=== PATIENT | male | born 1985 | race Caucasian/White ===

== ENCOUNTER → 2016-12-18 | Outpatient (CLI) | payer MEDICARE, OTHER ==
--- NOTE | 2016-12-18 14:39 | US ---
EXAMINATION TYPE: US scrotum with doppler. Grayscale and color Doppler Duplex imaging performed of chayo pang scrotum. DATE OF EXAM: 12/18/2016 COMPARISON: NONE CLINICAL HISTORY: Q53.20 RANCHO UNDESCENDED TESTICLES. Undescended testicles bilaterally EXAM MEASUREMENTS: TESTICLES: Right Testicle: 2.2 x 0.7 x 1.3 cm Left Testicle: 1.9 x 0.9 x 1.3 cm EPIDIDYMIS HEAD: Right Epididymis: 0.7 cm Left Epididymis: 0.8 cm Doppler performed to assess for testicular vascularity; good bilateral color flow and waveforms are s een. There is no evidence of testicular torsion. Presence of hydroceles: no Presence of varicoceles: no cystic area right epididymis = 0.4cm Hyperechoic areas noted right testicle, largest = 0.3 x 0.3 x 0.3cm At least one hyperechoic area left testicle = 1.0cm Unable to image testicles side by side, left testicle appears to be superior in position compared to right Multiple lymph nodes bilateral groin, Patient has underlying history of mental challenge making evaluation suboptimal. A fourth subcentimet er simple appearing cyst in the right epididymis is marked by technologist. A 3 mm round hyperechoic areas marked superiorly in the right testicle. Etiology uncertain but favored benign. Both testicles are diminutive in size for patient's age. No worrisome intratesticular mass is present bilaterally. C entral ill-defined hyperechoic area left testicle could reflect mediastinal fat, favored benign. Tech nologist ulrich several prominent lymph nodes in the bilateral groin that retain central fatty hilum a nd are subcentimeter on short axis. Technologist states patient has very small scrotal sac and testic les are difficult to localize within the scrotum or definitively within the inguinal canal. IMPRESSION: As above, symmetric small diminutive size to both testicles is seen. They are felt most l ikely to be along superior aspect of the small size scrotum. Clinical correlation advised.
== END | disposition home or self-care (01) ==
LOC: RADUSWWP 12:14
PROVIDERS: ATTEND Internal Medicine
DX: N50.89 Other specified disorders of the male genital organs (principal); Q53.20 Undescended testicle, unspecified, bilateral
CPT/HCPCS: 76870; 93975

== ENCOUNTER → 2021-03-07 | Outpatient (CLI) | payer MEDICARE, OTHER | END | disposition home or self-care (01) | LOC: LABWHC1 12:44 | PROVIDERS: ATTEND Urology | DX: Z20.822 Contact with and (suspected) exposure to COVID-19 (principal) | CPT/HCPCS: U0003; C9803 ==

== ENCOUNTER → 2022-03-23 | Outpatient (CLI) | payer MEDICARE, OTHER ==
--- NOTE | 2022-03-23 10:33 | FL ---
EXAMINATION TYPE: FL barium swallow DATE OF EXAM: 03/23/2022 CLINICAL HISTORY: History of cerebral palsy with dysphagia. TECHNIQUE: A single contrast esophagram is performed utilizing barium. A total of 34 seconds of flu oroscopic time was utilized during procedure and 24 images obtained COMPARISON: Chest x-ray May 02, 2016 FINDINGS: Single contrast study performed due to patient's underlying cerebral palsy. The esophagus s hows satisfactory motility and emptying into the stomach above the diaphragm. There is moderate to la rge size hiatal hernia or intrathoracic stomach noted. No proximal diverticulum. No esophageal strict ure noted. No significant gastroesophageal reflux was seen during real time performance of this study . IMPRESSION: Moderate to large size hiatal hernia or intrathoracic stomach noted.
== END | disposition home or self-care (01) ==
LOC: RADUSWWP 09:18
PROVIDERS: ATTEND Internal Medicine
DX: G80.9 Cerebral palsy, unspecified (principal); R13.10 Dysphagia, unspecified
CPT/HCPCS: 74220

== ENCOUNTER 2023-03-01 08:21 | Emergency (ER) | payer MEDICARE, OTHER ==
[2023-03-01] MEDS ORDERED: SODIUM CHLORIDE 0.9% 1,000 ML IV ONE (08:39)
[2023-03-01 08:47] VITALS: RESP 18; TEMP 98
[2023-03-01 09:32] LABS: Basophils # (A) 0.1 k/uL (0-0.2); Basophils % (A) 1 %; Eosinophils # (A) 0.2 k/uL (0-0.7); Eosinophils % (A) 6 %; HCT 39.1 % (39.0-53.0); HGB 12.7 gm/dL (13.0-17.5); Lymphocytes # (A) 0.8 k/uL (1.0-4.8); Lymphocytes % (A) 20 %; MCH 31.5 pg (25.0-35.0); MCHC 32.5 g/dL (31.0-37.0); MCV 96.7 fL (80.0-100.0); Mean Platelet Volume 8.8; Monocytes # (A) 0.2 k/uL (0-1.0); Monocytes % (A) 5 %; Neutrophils # (A) 2.8 k/uL (1.3-7.7); Neutrophils % (A) 66 %; Platelet Count 208 k/uL (150-450); RBC 4.05 m/uL (4.30-5.90); RDW 12.6 % (11.5-15.5); WBC 4.3 k/uL (3.8-10.6)
[2023-03-01 09:44] LABS: ALT 26 U/L (4-49); AST 30 U/L (17-59); African American GFR (CKD) >90 (>60 ml/min/1.73 sqM); Albumin 4.2 g/dL (3.5-5.0); Alkaline Phosphatase 91 U/L (38-126); Anion Gap 9 mmol/L; Blood Urea Nitrogen 17 mg/dL (9-20); Calcium 9.7 mg/dL (8.4-10.2); Carbon Dioxide 25 mmol/L (22-30); Chloride 106 mmol/L (98-107); Glucose 138 mg/dL (74-99); Non-African American GFR(CKD) >90 (>60 ml/min/1.73 sqM); Potassium 4.3 mmol/L (3.5-5.1); Sodium 140 mmol/L (137-145); Total Bilirubin 0.3 mg/dL (0.2-1.3); Total Protein 6.5 g/dL (6.3-8.2)
--- NOTE | 2023-03-01 09:58 | ED ---
General Adult HPI - General Chief complaint: Recheck/Abnormal Lab/Rx Stated complaint: Blood in toilet Time Seen by Provider: 03/01/23 08:38 Source: patient, RN notes reviewed Mode of arrival: ambulatory Limitations: no limitations - History of Present Illness Initial comments: 38-year-old male with past medical history of cerebral palsy presents to the emergency department with a chief complaint of blood in urine. Patient is nonverbal so history is obtained from his caregiver. Caregiver reports she was changing his brace and noticed blood in the toilet. She reports he is unsure if the blood was rectal or penile. She does report the patient has a previous history of kidney stones. Denies any known fevers, nausea, vomiting, abdominal pain. - Related Data Home Medications Medication Instructions Recorded Confirmed Ferrous Sulfate [Feosol] 325 mg PO Q48H 07/31/15 03/01/23 Cholecalciferol [Vitamin D3 (125 125 mcg PO DAILY 03/01/23 03/01/23 Mcg = 5000 Iu)] Erythromycin Base [Erythromycin] 1 applic BOTH EYES HS PRN 03/01/23 03/01/23 Ethosuximide [Zarontin] 250 mg PO BID 03/01/23 03/01/23 FLUoxetine HCL [PROzac] 20 mg PO DAILY 03/01/23 03/01/23 Fenofibrate Nanocrystallized 145 mg PO DAILY 03/01/23 03/01/23 [Fenofibrate] Furosemide [Lasix] 20 mg PO DAILY PRN 03/01/23 03/01/23 Ketoconazole 2% Shampoo [Nizoral] 1 applic TOPICAL DIRECTED 03/01/23 03/01/23 Ketoconazole 2% Shampoo [Nizoral] 1 applic TOPICAL MOTH 03/01/23 03/01/23 Loratadine [Claritin] 10 mg PO DAILY 03/01/23 03/01/23 Omeprazole 20 mg PO AC-BID@0730,1630 03/01/23 03/01/23 Sucralfate [Carafate] 1 gm PO QID 03/01/23 03/01/23 metFORMIN HCL [Glucophage] 500 mg PO BID 03/01/23 03/01/23 risperiDONE [RisperDAL] 1 mg PO DAILY 03/01/23 03/01/23 risperiDONE [RisperDAL] 2 mg PO HS 03/01/23 03/01/23 traZODone HCL [Desyrel] 100 mg PO HS 03/01/23 03/01/23 Allergies Allergy/AdvReac Type Severity Reaction Status Date / Time No Known Allergies Allergy Verified 03/01/23 12:30 Review of Systems ROS Statement: Those systems with pertinent positive or pertinent negative responses have been documented in the HPI. ROS Other: All systems not noted in ROS Statement are negative. Past Medical History Past Medical History: GERD/Reflux, GI Bleed, Musculoskeletal Disorder Additional Past Medical History / Comment(s): CEREBRAL PALSY; WEARS DEPENDS,- INCONTINENT History of Any Multi-Drug Resistant Organisms: None Reported Additional Past Surgical History / Comment(s): COLONOSCOPY, EGD Past Anesthesia/Blood Transfusion Reactions: No Reported Reaction Past Psychological History: ADD/ADHD Smoking Status: Never smoker Past Alcohol Use History: None Reported Past Drug Use History: None Reported - Past Family History Mother Family Medical History: No Reported History General Exam - General Exam Comments Initial Comments: General: Alert, in no acute distress Head: atraumatic normocephalic. Eyes PERRL, EOMI intact, mucous membranes moist Respiratory: Lungs clear to auscultation bilaterally Cardiovascular: Heart rate regular rate and Abdominal: Soft without guarding or rebound Extremities: Normal inspection with full range of motion and normal capillary refill Neuroogic: alert and oriented 3, CN II-XII intact, able to ambulate with steady gait Skin: warm dry and intact with normal color Rectal exam performed with ALFREDO Gonzalez present. No evidence of hemorrhoids. No gross bloody stool in the rectal vault. Limitations: no limitations Course Vital Signs 03/01/23 03/01/23 08:26 13:08 Temperature 98 F Pulse Rate 76 72 Respiratory 18 18 Rate Blood Pressure 126/84 109/65 O2 Sat by Pulse 99 98 Oximetry - Reevaluation(s) Reevaluation #1: 03/01/23 11:01 Patient reevaluated. sorter pricer updated on CT results. Agreeable with the plan for ultrasound. Medical Decision Making - Medical Decision Making Was pt. sent in by a medical professional or institution (, PA, [facility], urgent care, hospital, or snf...) When possible be specific @ -[No] Did you speak to anyone other than the patient for history (EMS, parent, family, police, friend...)? What history was obtained from this source @ -[No] Did you review nursing and triage notes (agree or disagree)? Why? @ -[I reviewed and agree with nursing and triage notes] Were old charts reviewed (outside hosp., previous admission, EMS record, old EKG, old radiological studies, urgent care reports/EKG's, snf records)? Report findings @ -[No old charts were reviewed] Differential Diagnosis (chest pain, altered mental status, abdominal pain women, abdominal pain men, vaginal bleeding, weakness, fever, dyspnea, syncope, headache, dizziness, GI bleed, back pain, seizure, CVA, palpatations, mental health, musculoskeletal)? @ -[not applicable] EKG interpreted by me (3pts min.). @ -[As above] X-rays interpreted by me (1pt min.). @ -[None done] CT interpreted by me (1pt min.). @ -Yes U/S interpreted by me (1pt. min.). @ -Yes What testing was considered but not performed or refused? (CT, X-rays, U/S, labs)? Why? @ -[None] What meds were considered but not given or refused? Why? @ -[None] Did you discuss the management of the patient with other professionals (professionals i.e. , PA, [employer], lab, RT, psych nurse, geriatric social worker, program aide, teacher, zoology technical officer, manager case)? Give summary @ -[No] Was smoking cessation discussed for >3mins.? @ -[No] Was critical care preformed (if so, how long)? @ -[No] Were there social determinants of health that impacted care today? How? (Homelessness, low income, unemployed, alcoholism, drug addiction, transportation, low edu. Level, literacy, decrease access to med. care, halfway, rehab)? @ -[No] Was there de-escalation of care discussed even if they declined (Discuss DNR or withdrawal of care, Hospice)? DNR status @ -[No] What co-morbidities impacted this encounter? (DM, HTN, Smoking, COPD, CAD, Cancer, CVA, ARF, Chemo, Hep., AIDS, mental health diagnosis, sleep apnea, morbid obesity)? @ -[None] Was patient admitted / discharged? Hospital course, mention meds given and route, prescriptions, significant lab abnormalities, going to OR and other pertinent info. @ -Discharge. This is a pleasant 38-year-old male with past medical history significant for cerebral palsy who presents the emergency department with possible blood in urine or stool. Patient had a thorough history and physical exam performed. Patient afebrile with vital signs stable and the emergency department. Heart rate regular rate and rhythm, lungs clear to auscultation abdomen soft non-tender. No CVA tenderness. No gross bloody stool in the rectal vault for evidence of hemorrhoids. Patient had laboratory studies performed which were unremarkable. Including negative urinalysis and negative occult. I interpreted the following: CT reveals a nonobstructive left renal 7 mm calculus. There is a left renal 9 mm hyperdense lesion likely representing hemorrhagic cyst recommend further evaluation with the renal ultrasound. Ultrasound reveals similar findings. I discussed the results in detail with the patient's caregiver reports a sore throat questions addressed. She is agreeable with the plan for discharge home at this time. Return precautions discussed. Recommend close follow-up with Dr. Gómez, urology within 3-5 days. Patient discharged in stable condition. Case discussed with Dr. Larios , [facility] who agrees with plan of care Undiagnosed new problem with uncertain prognosis? @ -[No] Drug Therapy requiring intensive monitoring for toxicity (Heparin, Nitro, Insulin, Cardizem)? @ -[No] Were any procedures done? @ -[No] Diagnosis/symptom? @ -Hematuria - Renal Cyst Acute, or Chronic, or Acute on Chronic? @ -Acute Uncomplicated (without systemic symptoms) or Complicated (systemic symptoms)? @ -Uncomplicated Side effects of treatment? @ -[No] Exacerbation, Progression, or Severe Exacerbation? @ -[No] Poses a threat to life or bodily function? How? (Chest pain, [place], [place], pneumonia, PE, COPD, DKA, ARF, appy, cholecystitis, CVA, Diverticulitis, Homicidal, Suicidal, threat to staff... and all critical care pts) @ -Low likelihood - Lab Data Result diagrams: 03/01/23 09:19 03/01/23 09:19 Lab Results 03/01/23 03/01/23 03/01/23 Range/Units 09:19 09:19 09:19 WBC 4.3 (3.8-10.6) k/uL RBC 4.05 L (4.30-5.90) m/uL Hgb 12.7 L (13.0-17.5) gm/dL Hct 39.1 (39.0-53.0) % MCV 96.7 (80.0-100.0) fL MCH 31.5 (25.0-35.0) pg MCHC 32.5 (31.0-37.0) g/dL RDW 12.6 (11.5-15.5) % Plt Count 208 (150-450) k/uL MPV 8.8 Neutrophils % 66 % Lymphocytes % 20 % Monocytes % 5 % Eosinophils % 6 % Basophils % 1 % Neutrophils # 2.8 (1.3-7.7) k/uL Lymphocytes # 0.8 L (1.0-4.8) k/uL Monocytes # 0.2 (0-1.0) k/uL Eosinophils # 0.2 (0-0.7) k/uL Basophils # 0.1 (0-0.2) k/uL PT (10.0-12.5) sec INR (<1.2) APTT (22.0-30.0) sec Sodium (137-145) mmol/L Potassium (3.5-5.1) mmol/L Chloride (98-107) mmol/L Carbon Dioxide (22-30) mmol/L Anion Gap mmol/L BUN (9-20) mg/dL Creatinine (0.66-1.25) mg/dL Est GFR (CKD-EPI)AfAm (>60 ml/min/1.73 sqM) Est GFR (CKD-EPI)NonAf (>60 ml/min/1.73 sqM) Glucose (74-99) mg/dL Calcium (8.4-10.2) mg/dL Total Bilirubin (0.2-1.3) mg/dL AST (17-59) U/L ALT (4-49) U/L Alkaline Phosphatase (38-126) U/L Total Protein (6.3-8.2) g/dL Albumin (3.5-5.0) g/dL Urine Color Yellow Urine Appearance Clear (Clear) Urine pH 6.5 (5.0-8.0) Ur Specific [place] 1.020 (1.001-1.035) Urine Protein Negative (Negative) Urine Glucose (UA) Negative (Negative) Urine Ketones Negative (Negative) Urine Blood Negative (Negative) Urine Nitrite Negative (Negative) Urine Bilirubin Negative (Negative) Urine Urobilinogen <2.0 (<2.0) mg/dL Ur Leukocyte Esterase Negative (Negative) Stool Occult Blood Negative (Negative) 03/01/23 03/01/23 Range/Units 09:19 09:19 WBC (3.8-10.6) k/uL RBC (4.30-5.90) m/uL Hgb (13.0-17.5) gm/dL Hct (39.0-53.0) % MCV (80.0-100.0) fL MCH (25.0-35.0) pg MCHC (31.0-37.0) g/dL RDW (11.5-15.5) % Plt Count (150-450) k/uL MPV Neutrophils % % Lymphocytes % % Monocytes % % Eosinophils % % Basophils % % Neutrophils # (1.3-7.7) k/uL Lymphocytes # (1.0-4.8) k/uL Monocytes # (0-1.0) k/uL Eosinophils # (0-0.7) k/uL Basophils # (0-0.2) k/uL PT 10.5 (10.0-12.5) sec INR 0.9 (<1.2) APTT 25.0 (22.0-30.0) sec Sodium 140 (137-145) mmol/L Potassium 4.3 (3.5-5.1) mmol/L Chloride 106 (98-107) mmol/L Carbon Dioxide 25 (22-30) mmol/L Anion Gap 9 mmol/L BUN 17 (9-20) mg/dL Creatinine 0.58 L (0.66-1.25) mg/dL Est GFR (CKD-EPI)AfAm >90 (>60 ml/min/1.73 sqM) Est GFR (CKD-EPI)NonAf >90 (>60 ml/min/1.73 sqM) Glucose 138 H (74-99) mg/dL Calcium 9.7 (8.4-10.2) mg/dL Total Bilirubin 0.3 (0.2-1.3) mg/dL AST 30 (17-59) U/L ALT 26 (4-49) U/L Alkaline Phosphatase 91 (38-126) U/L Total Protein 6.5 (6.3-8.2) g/dL Albumin 4.2 (3.5-5.0) g/dL Urine Color Urine Appearance (Clear) Urine pH (5.0-8.0) Ur Specific [place] (1.001-1.035) Urine Protein (Negative) Urine Glucose (UA) (Negative) Urine Ketones (Negative) Urine Blood (Negative) Urine Nitrite (Negative) Urine Bilirubin (Negative) Urine Urobilinogen (<2.0) mg/dL Ur Leukocyte Esterase (Negative) Stool Occult Blood (Negative) Disposition Clinical Impression: Renal cyst, Hematuria Disposition: HOME SELF-CARE Condition: Stable Instructions (If sedation given, give patient instructions): Flank Pain (ED), Kidney Cyst (ED) Additional Instructions: Please monitor symptoms closely Please return to the nearest emergency department symptoms persist Please follow-up with the urologist in 3-5 days Is patient prescribed a controlled substance at d/c from ED?: No Referrals: Chey Martinez NPC [Primary Care Provider] - 1-2 days Stoney Brown MD [STAFF PHYSICIAN] - 1-2 days Arturo Velasquez MD [STAFF PHYSICIAN] - 1-2 days Time of Disposition: 12:51
[2023-03-01 10:18] LABS: INR 0.9 (<1.2); Prothrombin Time 10.5 sec (10.0-12.5)
--- NOTE | 2023-03-01 10:19 | CT ---
EXAMINATION TYPE: CT abdomen pelvis wo con CT DLP: 597 mGycm, Automated exposure control for dose reduction was used. DATE OF EXAM: 03/01/2023 10:11 AM COMPARISON: No direct comparisons CLINICAL INDICATION:Male, 38 years old with history of blood in urine; hematuria TECHNIQUE: Standard CT of the abdomen and pelvis without IV or oral contrast. Lack of IV or oral co ntrast limits evaluation of solid and hollow organ viscera. Coronal and sagittal reformats were perfo rmed. FINDINGS: LOWER CHEST: Visualized lung bases are clear. Mild prominence of the heart. ABDOMEN LIVER: Unremarkable GALLBLADDER AND BILE DUCTS: Unremarkable. PANCREAS: Unremarkable. SPLEEN: Unremarkable. ADRENAL GLANDS: Unremarkable. KIDNEYS AND URETERS: No evidence of hydronephrosis or prominent left extrarenal pelvis. Nonobstructiv e left lower pole 7 mm calculus. Left kidney hyperdense 9 mm lesion (series 201, image 63). PELVIS BLADDER: Unremarkable REPRODUCTIVE: Coarse calcifications of the prostate gland are identified. ABDOMEN & PELVIS STOMACH AND BOWEL: Large hiatal hernia with most of the stomach above the diaphragm. No focal bowel w all thickening or surrounding inflammatory changes. The appendix is within normal limits. Distal colo moraima diverticulosis without evidence for acute diverticulitis. No evidence of bowel obstruction. PERITONEUM: No evidence of pneumoperitoneum or free fluid. VASCULATURE: No evidence of aortic aneurysm. Few pelvic phlebolith. Nonspecific sclerotic focus withi n the left superior pubic ramus. MUSCULOSKELETAL: No acute osseous abnormalities LYMPH NODES: No gross evidence for lymphadenopathy. SOFT TISSUE/ABDOMINAL WALL: Small fat filled umbilical hernia. IMPRESSION: 1. No CT evidence for an acute process. 2. Nonobstructive left renal 7 mm calculus. 3. Left renal 9 mm hyperdense lesion likely representing a proteinaceous/hemorrhagic cyst. This can b e further evaluated with renal ultrasound. 4. Large hiatal hernia with most of the stomach above the diaphragm. 5. Colonic diverticulosis without evidence for acute diverticulitis. 6. Nonspecific sclerotic focus within the left superior pubic ramus. Possible benign bone island.
--- NOTE | 2023-03-01 11:21 | US ---
EXAMINATION TYPE: US kidneys/renal and bladder DATE OF EXAM: 03/01/2023 COMPARISON: CT today CLINICAL INDICATION: Male, 38 years old with history of renal cyst; EXAM MEASUREMENTS: Right Kidney: 10.0 x 5.2 x 3.8 cm Left Kidney: 10.5 x 5.8 x 4.1 cm Right Kidney: There is a hypoechoic area medially measuring 1.4 x 1.5 x 1.3 cm Left Kidney: Mild hydronephrosis; Cystic area lower pole measuring 1.3 x 1.2 x 1.5 cm; Lower pole sto ne measuring 1.1 cm Bladder: Anechoic Bilateral Jets seen: yes There is no evidence for hydronephrosis at this point in time. Prominent left extra pelvis on CT. Low er pole 1.1 cm calculus. Left lower pole 1.3 cm cyst identified likely corresponding to CT. Suggested 1.5 cm right mid medially kidney hypoechoic lesion. The urinary bladder is anechoic. Bilateral uret eral jets are seen. Patient is mentally challenged causing difficult and limited exam. IMPRESSION: 1. No hydronephrosis. 2. Nonobstructive left renal calculus. 3. Simple appearing 1.3 cm left renal cyst which likely corresponds to a proteinaceous cyst/hemorrhag ic cyst on CT. 4. Questionable 1.5 cm right mid kidney hypoechoic lesion. Follow-up renal ultrasound in 6 months is recommended.
[2023-03-01 12:05] LABS: Color,Urine Yellow
[2023-03-01 12:06] LABS: Appearance,Urine Clear (Clear); Bilirubin,Urine Negative (Negative); Blood,Urine Negative (Negative); Glucose,Urine (UA) Negative (Negative); Ketones,Urine Negative (Negative); Leukocyte Esterase,Urine Negative (Negative); Nitrite,Urine Negative (Negative); PH, Urine 6.5 (5.0-8.0); Protein,Urine Negative (Negative); Urobilinogen,Urine <2.0 mg/dL (<2.0)
[2023-03-01 13:21] VITALS: BP 109/65; PULSE 72
== END 2023-03-01 13:09 | disposition home or self-care (01) ==
LOC: EC 08:21
DX: N13.2 Hydronephrosis with renal and ureteral calculous obstruction (principal); K57.30 Diverticulosis of large intestine without perforation or abscess without bleeding; K44.9 Diaphragmatic hernia without obstruction or gangrene; K21.9 Gastro-esophageal reflux disease without esophagitis; F90.9 Attention-deficit hyperactivity disorder, unspecified type; Z79.899 Other long term (current) drug therapy
CPT/HCPCS: 36415; 74176; 76770; 80053; 81003; 82272; 85025; 85610; 85730; 96360; 96361; 99284

== ENCOUNTER 2023-04-12 12:14 | Day surgery (SDC) | payer MEDICARE, OTHER ==
[~2023-04-12 12:14] MED LIST: ACETAMINOPHEN TAB 500 MG TAB PO PRN; DEXAMETHASONE SOD PHOSPHATE 4 MG/ML 1 ML VIAL IV ONE; HEPARIN SODIUM,PORCINE/PF 5,000 UNIT/0.5 ML SYRINGE SQ PRN; HYDROmorphone 0.5 MG/0.5 ML SYRINGE IVP PRN; LACTATED RINGERS 1,000 ML IV SCH; MIDAZOLAM 2 MG/2 ML VIAL IV PRN; ONDANSETRON 4 MG/2 ML VIAL IVP ONE; Pre Op ABX Message 1 EACH MISC MISCELLANE ONE; SCOPOLAMINE 1 MG/72 HR PATCH TRANSDERM ONE
[2023-04-12 13:12] VITALS: TEMP 97.3
[2023-04-12 14:03] LABS: Glucose,Whole Blood 81 mg/dL (70-110)
[2023-04-12] MEDS ORDERED: ACETAMINOPHEN IV (For NPO) 1,000 MG/100 ML VIAL IVPB ONE (14:16)
--- NOTE | 2023-04-12 14:18 | P.GSHP ---
History of Present Illness H&P Date: 04/12/23 Chief Complaint: Iron deficiency anemia Is a 38-year-old male with history of iron deficiency anemia. Patient presents today for Port-A-Cath insertion. Patient has had difficult IV access. Patient is requiring multiple IV infusions. The port is being placed for IV infusion therapy. Past Medical History Past Medical History: Diabetes Mellitus, GERD/Reflux, GI Bleed, Musculoskeletal Disorder, Seizure Disorder, Skin Disorder Additional Past Medical History / Comment(s): CEREBRAL PALSY; WEARS DEPENDS- INCONTINENT, EPILEPSY, KIDNEY STONES, INTELLECTUAL AND MENTAL DISABILITY, "prediabetic", psoriasis - eyelids, scalp, renal cyst, thromocytopenia, iron deficiency anemia - pt. gets iron infusions and IV access is becoming difficult History of Any Multi-Drug Resistant Organisms: None Reported Additional Past Surgical History / Comment(s): COLONOSCOPY, EGD, Surgical removal of kidney stones Past Anesthesia/Blood Transfusion Reactions: No Reported Reaction Smoking Status: Never smoker - Past Family History Mother Family Medical History: No Reported History Medications and Allergies Home Medications Medication Instructions Recorded Confirmed Type Ferrous Sulfate [Feosol] 325 mg PO Q48H 07/31/15 04/12/23 History Cholecalciferol [Vitamin D3 (125 125 mcg PO DAILY 03/01/23 04/12/23 History Mcg = 5000 Iu)] Erythromycin Base [Erythromycin] 1 applic BOTH EYES HS PRN 03/01/23 04/08/23 H istory Ethosuximide [Zarontin] 250 mg PO BID 03/01/23 04/12/23 History FLUoxetine HCL [PROzac] 20 mg PO DAILY 03/01/23 04/12/23 History Fenofibrate Nanocrystallized 145 mg PO DAILY 03/01/23 04/12/23 History [Fenofibrate] Furosemide [Lasix] 20 mg PO DAILY PRN 03/01/23 04/12/23 History Ketoconazole 2% Shampoo [Nizoral] 1 applic TOPICAL Q4D PRN 03/01/23 04/12/23 History Omeprazole 20 mg PO AC-BID@0730,1630 03/01/23 04/12/23 History Sucralfate [Carafate] 1 gm PO QID 03/01/23 04/12/23 History metFORMIN HCL [Glucophage] 500 mg PO BID 03/01/23 04/12/23 History risperiDONE [RisperDAL] 1 mg PO QAM 03/01/23 04/12/23 History risperiDONE [RisperDAL] 2 mg PO HS 03/01/23 04/12/23 History traZODone HCL [Desyrel] 100 mg PO HS 03/01/23 04/12/23 History Loratadine 10 mg PO DAILY 04/08/23 04/12/23 History Allergies Allergy/AdvReac Type Severity Reaction Status Date / Time No Known Allergies Allergy Verified 04/12/23 12:58 Surgical - Exam Vital Signs Temp Pulse Resp BP Pulse Ox 97.3 F L 60 18 103/54 95 04/12/23 13:05 04/12/23 13:05 04/12/23 13:05 04/12/23 13:05 04/12/23 13:05 - General well developed, well nourished, no distress - Eyes PERRL - ENT normal pinna - Neck no masses - Respiratory normal expansion - Cardiovascular Rhythm: regular - Abdomen Abdomen: soft, non tender Assessment and Plan Assessment: History of iron deficiency anemia. We'll place Port-A-Cath for IV infusion therapy.
[2023-04-12] MEDS ORDERED: MIDAZOLAM 2 MG/2 ML VIAL ONE (14:35)
[2023-04-12] MEDS ORDERED: PROPOFOL 10 MG/ML 20 ML VIAL IV ONE (14:35)
[2023-04-12] MEDS ORDERED: GLYCOPYRROLATE 0.2 MG/ML 2 ML VIAL ONE (14:35)
[2023-04-12] MEDS ORDERED: fentaNYL (PF) 50 MCG/ML 2 ML AMP ONE (14:35)
[2023-04-12] MEDS ORDERED: LIDOCAINE 0.5%-EPI 1:200,000 50 ML VIAL SQ ONE ×2 (14:58)
--- NOTE | 2023-04-12 15:21 | FL ---
Fluoroscopy INDICATION: Pain FINDINGS: Fluoroscopy time: 7 seconds. Total dose area product (DAP) in uGy*m?, mGy*cm? (or similar): 0.4140 Images obtained: 4. IMPRESSION: 1. Documentation of fluoroscopy.
--- NOTE | 2023-04-12 15:27 | P.OP ---
Date of Procedure: 04/12/23 Preoperative Diagnosis: Iron deficiency anemia Postoperative Diagnosis: Same Procedure(s) Performed: Right subclavian Port-A-Cath Anesthesia: NOHEMI Surgeon: Erik Jose Estimated Blood Loss (ml): 5 Pathology: none sent Condition: stable Disposition: PACU Description of Procedure: The patient was placed on the operating table in the supine position. The patient received IV sedation. The patient's chest was prepped and draped in the usual sterile fashion. A roll had been placed between the shoulder blades in a longitudinal fashion. After prepping and draping the skin was anesthetized 1% local Xylocaine. And then using the Seldinger technique the subclavian vein was cannulated. A wire was placed into the vein and fluoroscopy position the wire at the atrial caval junction. Next the dilator sheath was placed over top the wire and the wire was withdrawn. The catheter was positioned at the atriocaval position. The catheter was placed through the sheath after the dilator was withdrawn. The sheath was then withdrawn. Position of the catheter was confirmed with fluoroscopy. The Port-A-Cath was connected to the catheter. The Port-A-Cath was flushed with saline and then heparinized saline. The skin was closed interrupted 3-0 Monocryl suture. Dermabond was applied. Patient tolerated procedure well and was sent to recovery room stable condition.
[2023-04-12 15:36] VITALS: RESP 16
[2023-04-12 15:59] VITALS: BP 106/676; PULSE 70
--- NOTE | 2023-04-12 16:01 | XR ---
EXAMINATION TYPE: XR chest 1V portable DATE OF EXAM: 04/12/2023 COMPARISON: 05/02/2016 INDICATION: Port-A-Cath placement TECHNIQUE: Single frontal view of the chest is obtained. FINDINGS: The heart size is enlarged. The pulmonary vasculature is normal. Scattered increased lung markings are present. Correlate for some benign overload. Report is placed on the right with tip in the superior vena cava region. IMPRESSION: 1. Mild cardiomegaly with prominent pulmonary vascular markings. Correlate supine overload or early c ongestive heart failure. 2. No pneumothorax postcatheter placement
== END 2023-04-12 16:47 | disposition home or self-care (01) ==
LOC: OR 12:14
PROVIDERS: ATTEND Surgery
DX: D50.9 Iron deficiency anemia, unspecified (principal); E11.9 Type 2 diabetes mellitus without complications; K21.9 Gastro-esophageal reflux disease without esophagitis; G40.909 Epilepsy, unspecified, not intractable, without status epilepticus; Z45.2 Encounter for adjustment and management of vascular access device; Z79.84 Long term (current) use of oral hypoglycemic drugs; Z79.899 Other long term (current) drug therapy
CPT/HCPCS: 77001; 71045; 36561; J1100; J2405; J1642; J0131; J1644

== ENCOUNTER → 2023-05-24 | Outpatient (CLI) | payer MEDICARE, OTHER ==
[2023-05-24 14:24] VITALS: BP 122/77; PULSE 77; RESP 16; TEMP 97.8
[2023-05-24 15:18] LABS: Basophils # (A) 0.1 k/uL (0-0.2); Basophils % (A) 1 %; Eosinophils # (A) 0.2 k/uL (0-0.7); Eosinophils % (A) 4 %; HCT 37.6 % (39.0-53.0); HGB 12.3 gm/dL (13.0-17.5); Lymphocytes # (A) 1.2 k/uL (1.0-4.8); Lymphocytes % (A) 21 %; MCH 31.2 pg (25.0-35.0); MCHC 32.6 g/dL (31.0-37.0); MCV 95.7 fL (80.0-100.0); Mean Platelet Volume 8.2; Monocytes # (A) 0.4 k/uL (0-1.0); Monocytes % (A) 6 %; Neutrophils # (A) 3.9 k/uL (1.3-7.7); Neutrophils % (A) 65 %; Platelet Count 243 k/uL (150-450); RBC 3.93 m/uL (4.30-5.90); WBC 5.9 k/uL (3.8-10.6)
[2023-05-24 15:29] LABS: Appearance,Urine Clear (Clear); Bilirubin,Urine Negative (Negative); Blood,Urine Negative (Negative); Calcium Oxalate Crystals,Urine Few /hpf; Color,Urine Yellow; Glucose,Urine (UA) Negative (Negative); Hyaline Casts,Urine 1 /lpf (0-2); Ketones,Urine Negative (Negative); Leukocyte Esterase,Urine Trace (Negative); Mucus,Urine Few /hpf; Nitrite,Urine Negative (Negative); Protein,Urine Negative (Negative); RBC,Urine 13 /hpf (0-5); Specific Gravity,Urine 1.025 (1.001-1.035); Squamous Epithelial Cell,Urine <1 /hpf (0-4); Urobilinogen,Urine <2.0 mg/dL (<2.0); WBC,Urine 19 /hpf (0-5)
[2023-05-24 15:36] LABS: African American GFR (CKD) >90 (>60 ml/min/1.73 sqM); Anion Gap 7 mmol/L; Blood Urea Nitrogen 22 mg/dL (9-20); Calcium 9.6 mg/dL (8.4-10.2); Carbon Dioxide 27 mmol/L (22-30); Chloride 107 mmol/L (98-107); Glucose 75 mg/dL (74-99); Magnesium 1.8 mg/dL (1.6-2.3); Non-African American GFR(CKD) >90 (>60 ml/min/1.73 sqM); Potassium 4.5 mmol/L (3.5-5.1); Sodium 141 mmol/L (137-145)
[2023-05-24 21:16] LABS: Chol/HDL Ratio 5.38 Ratio; LDL Cholesterol,Calculated 65.3 mg/dL (0.0-131.0)
== END ==
LOC: PROCWHC3 13:55
PROVIDERS: ATTEND Urology
DX: Z01.818 Encounter for other preprocedural examination (principal); N20.0 Calculus of kidney; R31.0 Gross hematuria; K21.9 Gastro-esophageal reflux disease without esophagitis; E78.5 Hyperlipidemia, unspecified; Z79.899 Other long term (current) drug therapy
CPT/HCPCS: 80061; 80048; 84443 ×2; 82607; 83735; 85025; 81001; 82306; 87086; 36591; J1642

== ENCOUNTER 2023-06-01 08:22 | Day surgery (SDC) | payer MEDICARE, OTHER ==
[2023-05-28 10:55] VITALS: BMI 25.6
--- NOTE | 2023-06-01 08:47 | XR ---
EXAMINATION TYPE: XR KUB DATE OF EXAM: 06/01/2023 COMPARISON: 05/01/2016 INDICATION: Left renal stone hematuria TECHNIQUE: Single view abdomen supine view FINDINGS: There is a normal bowel gas pattern. Psoas margins are normal. No organomegaly is present. There is a 0.5 cm wide calcification along the left psoas muscle may be a mid ureteral stone. IMPRESSION: 1. 0.5 cm wide mid left ureteral stone
[2023-06-01] MEDS ORDERED: DEXAMETHASONE SOD PHOSPHATE 4 MG/ML 1 ML VIAL IV ONE (08:59)
[2023-06-01] MEDS ORDERED: LIDOCAINE 1% (10MG/ML) FOR IV START INTRADERMA PRN (08:59)
[2023-06-01] MEDS ORDERED: LACTATED RINGERS 1,000 ML IV SCH (08:59)
[2023-06-01] MEDS ORDERED: ONDANSETRON 4 MG/2 ML VIAL IVP ONE (08:59)
[2023-06-01] MEDS ORDERED: HYDROmorphone 0.5 MG/0.5 ML SYRINGE IVP PRN (08:59)
[2023-06-01] MEDS ORDERED: METOCLOPRAMIDE 5 MG/ML 2 ML VIAL IVP PRN (08:59)
--- NOTE | 2023-06-01 09:09 | P.HPIHPCON ---
History of Present Illness H&P Date: 06/01/23 Chief Complaint: Left ureteral stone This is a 38-year-old male with history of gross hematuria. Patient does have history of developmental delay, per long term care administrator her will not be able to tolerate an office cystoscopy. Discussed the option of doing an office cystoscopy in the operating room with bilateral retrograde pyelograms to completely evaluate the upper tract. Of note he also has history of left-sided renal stone, but on the morning of surgery on KUB appears the stone has migrated to the proximal ureter. I discussed with him at this time recommend proceeding with a left-sided ureteroscopy with holmium laser to address the stone at same setting. Aware of the risks which includes but not limited to bleeding, infection, injury to ureter Consent for Procedure: I have explained the operation/procedure to the patient, including the risks, benefits, side effects, alternative therapies (including not receiving the proposed treatment or service), the likelihood of the patient achieving his/her goals, and potential recuperation problems for the procedure/sedation/analgesia, as well as any blood products, if indicated. I also explained to the patient the risks, benefits and side effects of the alternatives, as well as the risks re lated to not receiving the proposed procedure, care, treatment, or services. Past Medical History Past Medical History: Diabetes Mellitus, GERD/Reflux, GI Bleed, Musculoskeletal Disorder, Seizure Disorder, Skin Disorder Additional Past Medical History / Comment(s): CEREBRAL PALSY, WEARS DEPENDS, INCONTINENT, EPILEPSY, KIDNEY STONES, INTELLECTUAL AND MENTAL DISABILITY, "Prediabetic", Psoriasis - eyelids and scalp, renal cyst, thromocytopenia, iron deficiency anemia - gets iron infusions, has [id number]. History of Any Multi-Drug Resistant Organisms: None Reported Additional Past Surgical History / Comment(s): COLONOSCOPY, EGD, surgical removal of kidney stones, [id number] placement. Past Anesthesia/Blood Transfusion Reactions: No Reported Reaction Additional Past Anesthesia/Blood Transfusion Reaction / Comment(s): Recently - difficult IV start. Past Psychological History: ADD/ADHD Additional Psychological History / Comment(s): Disruptive impulse contol and conduct disorder. Smoking Status: Never smoker Past Alcohol Use History: None Reported Past Drug Use History: None Reported - Past Family History Mother Family Medical History: No Reported History Medications and Allergies Home Medications Medication Instructions Recorded Confirmed Type Ferrous Sulfate [Feosol] 325 mg PO Q48H 07/31/15 05/28/23 History Cholecalciferol [Vitamin D3 (125 125 mcg PO DAILY 03/01/23 05/28/23 History Mcg = 5000 Iu)] Erythromycin Base [Erythromycin] 1 applic BOTH EYES HS PRN 03/01/23 05/28/23 History Ethosuximide [Zarontin] 250 mg PO BID 03/01/23 05/28/23 History FLUoxetine HCL [PROzac] 20 mg PO DAILY@0800 03/01/23 05/28/23 History Fenofibrate Nanocrystallized 145 mg PO DAILY 03/01/23 05/28/23 History [Fenofibrate] Furosemide [Lasix] 20 mg PO DAILY PRN 03/01/23 05/28/23 History Ketoconazole 2% Shampoo [Nizoral] 1 applic TOPICAL Q4D PRN 03/01/23 05/28/23 History Omeprazole 20 mg PO AC-BID@0730,1630 03/01/23 05/28/23 History Sucralfate [Carafate] 1 gm PO QID 03/01/23 05/28/23 History metFORMIN HCL [Glucophage] 500 mg PO BID 03/01/23 05/28/23 History risperiDONE [RisperDAL] 1 mg PO QAM 03/01/23 05/28/23 History risperiDONE [RisperDAL] 2 mg PO HS 03/01/23 05/28/23 History traZODone HCL [Desyrel] 200 mg PO HS 03/01/23 05/28/23 History Loratadine 10 mg PO DAILY@0800 04/08/23 05/28/23 History Allergies Allergy/AdvReac Type Severity Reaction Status Date / Time No Known Allergies Allergy Verified 05/24/23 14:01 Surgical - Exam - General no distress, no pain - Eyes normal ocular movement, no pale - ENT normal nares, normal mucosa - Respiratory normal expansion, normal respiratory effort - Abdomen Abdomen: soft, non tender - Psychiatric oriented to time, oriented to person, oriented to place Assessment and Plan Assessment: OR for cystoscopy, bilateral retrograde pyelogram, left-sided ureteroscopy, holmium laser, stone basketting and stent insertion.
[2023-06-01] MEDS ORDERED: MIDAZOLAM 2 MG/2 ML VIAL ONE (12:30)
[2023-06-01] MEDS ORDERED: fentaNYL (PF) 50 MCG/ML 2 ML AMP ONE (12:30)
[2023-06-01] MEDS ORDERED: LIDOCAINE 1% INJ 10MG/ML (20 ML MDV) ONE (12:30)
[2023-06-01] MEDS ORDERED: PROPOFOL 10 MG/ML 20 ML VIAL IV ONE (12:30)
[2023-06-01] MEDS ORDERED: SUCCINYLCHOLINE CHLORIDE 200 MG/10 ML VIAL IV ONE (12:30)
[2023-06-01] MEDS ORDERED: LIDOCAINE 4% LTA KIT (4 ML) TOPICAL ONE (12:30)
[2023-06-01] MEDS ORDERED: IOPAMIDOL-370 100ML BTL MISCELLANE ONE (13:09)
--- NOTE | 2023-06-01 13:50 | FL ---
Intraoperative/procedural fluoroscopic services were provided for bilateral kidney stones and left ur eteral stent insertion. Total fluoroscopy time is 1.08 minutes with a total of 8 submitted images to PACS. Total DAP [id number] Gycm2. Please see the operative note for further details.
[2023-06-01 14:11] VITALS: TEMP 96.7
--- NOTE | 2023-06-01 14:15 | P.OP ---
Date of Procedure: 06/01/23 Preoperative Diagnosis: Gross hematuria, left ureteral stone Postoperative Diagnosis: Same Procedure(s) Performed: Cystoscopy, bilateral retrograde pyelogram, left ureteroscopy, holmium laser lithotripsy, stone basketing and stent insertion Implants: 6 [place]raini by 22 cm stent left on a string Anesthesia: NOHEMI Surgeon: Stoney Brown Estimated Blood Loss (ml): 5 Pathology: other (left ureteral stone) Condition: stable Disposition: PACU Indications for Procedure: This is a 38-year-old male with history of gross hematuria. Patient does have history of developmental delay, per adult care provider her will not be able to tolerate an office cystoscopy. Discussed the option of doing an office cystoscopy in the operating room with bilateral retrograde pyelograms to completely evaluate the upper tract. Of note he also has history of left-sided renal stone, but on the morning of surgery on KUB appears the stone has migrated to the proximal ureter. I discussed with him at this time recommend proceeding with a left-sided ureteroscopy with holmium laser to address the stone at same setting. Aware of the risks which includes but not limited to bleeding, infection, injury to ureter Operative Findings: Left proximal ureteral stone Description of Procedure: Patient brought to the operating room, general anesthesia was induced. He was prepped and draped in sterile fashion and placed in dorsolithotomy position. cystoscopy fitted with A 21 [place]raini sheath was inserted per urethra, cystoscopy was performed which showed multiple wide caliber bulbar strictures but I was able to navigate the scope passed them and into the bladder, the prostate was small and nonobstructive. Complete cystoscopy was performed which showed no abnormality within the bladder. Attention was then carried to the right ur eteral orifice which was intubated with an open-ended catheter, retrograde Pyelogram was performed which showed no filling defect or hydronephrosis. Attention was then carried to the left side, the left ureter orifice was intubated with an open-ended catheter, retrograde Pyelofgram was performed on that side which showed a filling defect in the proximal ureter with mild hydronephrosis at this time a wire was advanced through the catheter and the catheter was removed with the wire in place. Next, 1113 [place]i access sheath was passed over the wire into the proximal ureter under fluoroscopy. The flexible ureteroscope was inserted through the access sheath, ureteroscopy was performed showed a stone at the proximal ureter. Using the holmium laser the stone was fragmented, sizable stone fragment was removed using a stone basket. Repeat ureteroscopy and renoscopy showed no sizable fragments or injury in the kidney, there were no additional stones seen in the kidney. Pullback ureteroscopy was performed which showed no injury to the ureter or any ureteral stones, as ureteroscope was withdrawn and a sensor wire was advanced through. Next a ureteral stent was passed over the wire, the proximal curl was resides on fluoroscopy and the distal curl was visualized using the cystoscope. The bladder was emptied at the end of the case. The stent was left on a string and taped to the patient penis
[2023-06-01 15:04] VITALS: RESP 20
[2023-06-01 16:18] VITALS: BP 111/76; PULSE 60
== END 2023-06-01 16:00 ==
LOC: OR 08:22
PROVIDERS: ATTEND Urology
DX: N20.2 Calculus of kidney with calculus of ureter (principal); E11.9 Type 2 diabetes mellitus without complications; K21.9 Gastro-esophageal reflux disease without esophagitis; G40.909 Epilepsy, unspecified, not intractable, without status epilepticus; Z87.442 Personal history of urinary calculi; Z79.899 Other long term (current) drug therapy
CPT/HCPCS: 52356; 82365; 74420; 74018; C2625; C1758; C1769; J2250; J0330; J1100; J2765; J0690; J2405; J1642; J2001; J3010; J2704; Q9967

== ENCOUNTER → 2023-11-12 | Outpatient (CLI) | payer MEDICARE, OTHER ==
[2023-11-12 19:16] LABS: Calcium 9.6 mg/dL (8.7-10.3)
== END | disposition home or self-care (01) ==
LOC: LABWHC1 14:19
PROVIDERS: ATTEND Nurse Practitioner Family
DX: E83.52 Hypercalcemia (principal)
CPT/HCPCS: 36415; 82306; 82310; 83970

== ENCOUNTER 2024-09-25 10:01 | Emergency (ER) | payer MEDICARE, OTHER ==
--- NOTE | 2024-09-25 10:34 | ED ---
General Adult HPI - General Chief complaint: Recheck/Abnormal Lab/Rx Stated complaint: rubbing alcohol ingestion Time Seen by Provider: 09/25/24 10:26 Source: patient Mode of arrival: ambulatory Limitations: no limitations - History of Present Illness Initial comments: Dictation was produced using [email or web address] dictation software. please excuse any grammatical, word or spelling errors. Chief Complaint: 39-year-old mentally delayed male presents to the ER for isopropyl alcohol ingestion History of Present Illness: Patient is a 39-year-old male presents with staff from [facility]. Apparently there was an individual doing sinus experiments with [facility] residents. There was approximately 3 to 4 tablespoons of isopropyl alcohol and a Xiomy cup nearby when patient drank patient complaining of some abdominal pain otherwise according to [facility] staff he is at baseline. Post control was notified and was encouraged that patient was brought to the emergency room The ROS documented in this emergency department record has been reviewed and confirmed by me. Those systems with pertinent positive or negative responses have been documented in the HPI. All other systems are other negative and/or noncontributory. - Related Data Home Medications Medication Instructions Recorded Confirmed Ferrous Sulfate [Feosol] 325 mg PO Q48H 07/31/15 09/19/24 Cholecalciferol [Vitamin D3 (125 125 mcg PO DAILY 03/01/23 09/19/24 Mcg = 5000 Iu)] Erythromycin Base [Erythromycin] 1 applic BOTH EYES HS PRN 03/01/23 09/19/24 Ethosuximide [Zarontin] 250 mg PO BID 03/01/23 09/19/24 FLUoxetine HCL [PROzac] 20 mg PO DAILY@0800 03/01/23 09/19/24 Fenofibrate Nanocrystallized 145 mg PO DAILY 03/01/23 09/19/24 [Fenofibrate] Furosemide [Lasix] 20 mg PO DAILY PRN 03/01/23 09/19/24 Ketoconazole 2% Shampoo [Nizoral] 1 applic TOPICAL Q4D PRN 03/01/23 09/19/24 Omeprazole 20 mg PO AC-BID@0730,1630 03/01/23 09/19/24 Sucralfate [Carafate] 1 gm PO QID 03/01/23 09/19/24 metFORMIN HCL [Glucophage] 500 mg PO BID 03/01/23 09/19/24 risperiDONE [RisperDAL] 1 mg PO QAM 03/01/23 09/19/24 risperiDONE [RisperDAL] 2 mg PO HS 03/01/23 09/19/24 traZODone HCL [Desyrel] 200 mg PO HS 03/01/23 09/19/24 Loratadine 10 mg PO DAILY@0800 04/08/23 09/19/24 Previous Rx's Medication Instructions Recorded Cephalexin [Keflex] 500 mg PO Q6HR 1 Days #4 cap 06/01/23 Ketorolac [Toradol] 10 mg PO Q6HR #15 tab 06/01/23 Allergies Allergy/AdvReac Type Severity Reaction Status Date / Time No Known Allergies Allergy Verified 09/25/24 10:08 Review of Systems ROS Statement: Those systems with pertinent positive or pertinent negative responses have been documented in the HPI. ROS Other: All systems not noted in ROS Statement are negative. Past Medical History Past Medical History: GERD/Reflux, GI Bleed, Musculoskeletal Disorder Additional Past Medical History / Comment(s): CEREBRAL PALSY; WEARS DEPENDS,- INCONTINENT, EPILEPSY, KIDNEY STONES, INTELLECTUAL AND MENTAL DISABILITY History of Any Multi-Drug Resistant Organisms: None Reported Additional Past Surgical History / Comment(s): COLONOSCOPY, EGD, Surgical removal of kidney stones Past Anesthesia/Blood Transfusion Reactions: No Reported Reaction Additional Past Anesthesia/Blood Transfusion Reaction / Comment(s): Recently - difficult IV start. Past Psychological History: ADD/ADHD Smoking Status: Never smoker Past Alcohol Use History: None Reported Past Drug Use History: None Reported - Past Family History Mother Family Medical History: No Reported History General Exam - General Exam Comments Initial Comments: General: Well-appearing, nontoxic, no acute distress. Head: Normocephalic, atraumatic Eyes: PERRLA, EOMI ENT: Airway patent Chest: Nonlabored breathing Skin: No visual rash, normal skin tone Neuro: Alert and oriented 3 Musculoskeletal: No gross abnormalities Limitations: no limitations Course Vital Signs 09/25/24 09/25/24 09/25/24 10:04 10:08 11:06 Temperature 98 F 98.7 F Pulse Rate 80 72 73 Respiratory 18 20 16 Rate Blood Pressure 106/71 106/80 105/80 O2 Sat by Pulse 90 L 94 L 94 L Oximetry 09/25/24 09/25/2409/25/25 11:08 12:00 13:00 Temperature Pulse Rate 70 77 Respiratory 16 16 16 Rate Blood Pressure 108/78 110/70 O2 Sat by Pulse 97 98 Oximetry 09/25/24 14:00 Temperature Pulse Rate 84 Respiratory 16 Rate Blood Pressure 112/77 O2 Sat by Pulse 98 Oximetry - Reevaluation(s) Reevaluation #1: 09/25/24 13:27 Patient discussed with poison control states that patient is cleared for discharge EKG Findings - EKG Comments: EKG Findings:: My EKG interpretation: Ventricular rate 69, sinus rhythm, LA 165, QRS 85, QTc 4 7. No LA prolongation, no QTC prolongation, no ST or T-wave changes noted. Overall, this EKG is unremarkable Medical Decision Making - Medical Decision Making Was pt. sent in by a medical professional or institution (, PA, TOP INVENTORY CONTROL EXECUTIVE, urgent care, hospital, or long-term...) When possible be specific @ -No Did you speak to anyone other than the patient for history (EMS, parent, family, police, friend...)? What history was obtained from this source @ -No Did you review nursing and triage notes (agree or disagree)? Why? @ -I reviewed and agree with nursing and triage notes Were old charts reviewed (outside hosp., previous admission, EMS record, old EKG, old radiological studies, urgent care reports/EKG's, long-term records)? Report findings @ -No old charts were reviewed Differential Diagnosis (chest pain, altered mental status, abdominal pain women, abdominal pain men, vaginal bleeding, musculoskeletal, weakness, fever, dyspnea, syncope, headache, dizziness, GI bleed, back pain, seizure, CVA, palpatations, mental health)? @ -Toxic alcohol syndrome, pneumonitis, gastritis EKG interpreted by me (3pts min.). @ -See above X-rays interpreted by me (1pt min.). @ -Chest x-ray shows questionable pulmonary edema CT interpreted by me (1pt min.). @ -None done U/S interpreted by me (1pt. min.). @ -None done What testing was considered but not performed or refused? (CT, X-rays, U/S, labs)? Why? @ -None What meds were considered but not given or refused? Why? @ -None Was smoking cessation discussed for >3mins.? @ -No Were there social determinants of health that impacted care today? How? (Homelessness, low income, unemployed, alcoholism, drug addiction, transportation, low edu. Level, literacy, decrease access to med. care, care home, rehab)? @ -No Was there de-escalation of care discussed even if they declined (Discuss DNR or withdrawal of care, Hospice)? DNR status @ -No What co-morbidities impacted this encounter? (DM, HTN, Smoking, COPD, CAD, Cancer, CVA, ARF, Chemo, Hep., AIDS, mental health diagnosis, sleep apnea, morbid obesity)? @ -None Was patient admitted / discharged? Hospital course, mention meds given and route, prescriptions, significant lab abnormalities, going to OR and other pe rtinent info. @ -39-year-old mentally debilitated male presents to the emergency department after accidental ingestion of isopropyl alcohol. He took approximately 3 tablespoons amount. Ingestion was witnessed by [facility] staff. Vital signs stable. Labs unremarkable. Staff request x-ray for what sounds to them is wheezing. He did have some rhonchi in his lungs x-ray shows perhaps pulmonary edema. Heart failure labs negative. This likely viral respiratory infection. Patient no distress. Patient discharged. Vies follow-up with primary care doctor Did you discuss the management of the patient with other professionals (professionals i.e. , PA, TOP INVENTORY CONTROL EXECUTIVE, lab, RT, psych nurse, pediatric social worker, stereo equipment salesperson, teacher, parking regulation enforcement officer, medical case worker)? Give summary @ -No Was critical care preformed (if so, how long)? @ -No Undiagnosed new problem with uncertain prognosis? @ -No Drug Therapy requiring intensive monitoring for toxicity (Heparin, Nitro, Insulin, Cardizem)? @ -No Were any procedures done? @ -No Diagnosis/symptom? Acute, or Chronic, or Acute on Chronic? Uncomplicated (without systemic symptoms) or Complicated (systemic symptoms)? @ -Isopropyl alcohol ingestion Side effects of treatment? @ -No Exacerbation, Progression, or Severe Exacerbation? @ -No Poses a threat to life or bodily function? How? (Chest pain, USA, CA, pneumonia, PE, COPD, DKA, ARF, appy, cholecystitis, CVA, Diverticulitis, Homicidal, Suicidal, threat to staff... and all critical care pts) @ -No - Lab Data Result diagrams: 09/25/24 10:26 09/25/24 10:26 Lab Results 09/25/24 09/25/24 09/25/24 Range/Units 10:26 10: 10:26 WBC 9.02 (4.50-10.00) 10*3/uL RBC 3.99 L (4.40-5.60) 10*6/uL Hgb 12.5 L (13.0-17.0) g/dL Hct 37.4 L (39.6-50.0) % MCV 93.7 (80.0-97.0) fL MCH 31.3 (27.0-32.0) pg MCHC 33.4 (32.0-37.0) g/dL Plt Count 235 (140-440) 10*3/uL MPV 10.2 (9.5-12.2) fL Immature Gran % (Auto) 0.3 % Neutrophils % 72.1 % Lymphocytes % 12.4 % Monocytes % 10.6 % Eosinophils % 4.0 % Basophils % 0.6 % Immature Gran # 0.03 (0.00-0.04) 10*3/uL Neutrophils # 6.50 (1.80-7.70) 10*3/uL Lymphocytes # 1.12 (0.90-5.00) 10*3/uL Monocytes # 0.96 (0.20-1.00) 10*3/uL Eosinophils # 0.36 H (0.04-0.35) 10*3/uL Basophils # 0.05 (0.00-0.10) 10*3/uL Sodium 140 (137-145) mmol/L Potassium 4.6 (3.5-5.1) mmol/L Chloride 103 (98-107) mmol/L Carbon Dioxide 27 (22-30) mmol/L Anion Gap 10 mmol/L BUN 11 (9-20) mg/dL Creatinine 0.64 L (0.66-1.25) mg/dL Est GFR (CKD-EPI)AfAm >90 (>60 ml/min/1.73 sqM) Est GFR (CKD-EPI)NonAf >90 (>60 ml/min/1.73 sqM) Glucose 87 (74-99) mg/dL Plasma Lactic Acid Lucas 0.7 (0.7-2.0) mmol/L Calcium 10.3 H (8.4-10.2) mg/dL Total Bilirubin 0.4 (0.2-1.3) mg/dL AST 24 (17-59) U/L ALT 20 (4-49) U/L Alkaline Phosphatase 84 (38-126) U/L Troponin I (0.000-0.034) ng/mL NT-Pro-B Natriuret Pep pg/mL Total Protein 7.0 (6.3-8.2) g/dL Albumin 4.5 (3.5-5.0) g/dL Salicylates <1.0 mg/dL Acetaminophen <10.0 ug/mL Serum Alcohol <10 mg/dL 09/25/24 09/25/24 Range/Units 13:15 13:16 WBC (4.50-10.00) 10*3/uL RBC (4.40-5.60) 10*6/uL Hgb (13.0-17.0) g/dL Hct (39.6-50.0) % MCV (80.0-97.0) fL MCH (27.0-32.0) pg MCHC (32.0-37.0) g/dL Plt Count (140-440) 10*3/uL MPV (9.5-12.2) fL Immature Gran % (Auto) % Neutrophils % % Lymphocytes % % Monocytes % % Eosinophils % % Basophils % % Immature Gran # (0.00-0.04) 10*3/uL Neutrophils # (1.80-7.70) 10*3/uL Lymphocytes # (0.90-5.00) 10*3/uL Monocytes # (0.20-1.00) 10*3/uL Eosinophils # (0.04-0.35) 10*3/uL Basophils # (0.00-0.10) 10*3/uL Sodium (137-145) mmol/L Potassium (3.5-5.1) mmol/L Chloride (98-107) mmol/L Carbon Dioxide (22-30) mmol/L Anion Gap mmol/L BUN (9-20) mg/dL Creatinine (0.66-1.25) mg/dL Est GFR (CKD-EPI)AfAm (>60 ml/min/1.73 sqM) Est GFR (CKD-EPI)NonAf (>60 ml/min/1.73 sqM) Glucose (74-99) mg/dL Plasma Lactic Acid Lucas (0.7-2.0) mmol/L Calcium (8.4-10.2) mg/dL Total Bilirubin (0.2-1.3) mg/dL AST (17-59) U/L ALT (4-49) U/L Alkaline Phosphatase (38-126) U/L Troponin I <0.012 (0.000-0.034) ng/mL NT-Pro-B Natriuret Pep 45 pg/mL Total Protein (6.3-8.2) g/dL Albumin (3.5-5.0) g/dL Salicylates mg/dL Acetaminophen ug/mL Serum Alcohol mg/dL Disposition Clinical Impression: Accidental overdose Disposition: HOME SELF-CARE Condition: Fair Instructions (If sedation given, give patient instructions): Iodine Povacrylex/Isopropyl Alcohol (On the skin) Is patient prescribed a controlled substance at d/c from ED?: No Referrals: Howard Jin MD [Primary Care Provider] - 1-2 days Time of Disposition: 14:18
[2024-09-25 11:06] VITALS: RESP 16; TEMP 98.7
[2024-09-25 11:21] LABS: Basophils # (A) 0.05 10*3/uL (0.00-0.10); Basophils % (A) 0.6 %; Eosinophils # (A) 0.36 10*3/uL (0.04-0.35); HCT 37.4 % (39.6-50.0); HGB 12.5 g/dL (13.0-17.0); Lymphocytes # (A) 1.12 10*3/uL (0.90-5.00); Lymphocytes % (A) 12.4 %; MCH 31.3 pg (27.0-32.0); MCHC 33.4 g/dL (32.0-37.0); MCV 93.7 fL (80.0-97.0); Mean Platelet Volume 10.2 fL (9.5-12.2); Monocytes # (A) 0.96 10*3/uL (0.20-1.00); Monocytes % (A) 10.6 %; Neutrophils % (A) 72.1 %; Platelet Count 235 10*3/uL (140-440); RBC 3.99 10*6/uL (4.40-5.60); RDW 12.8 % (11.5-14.5); WBC 9.02 10*3/uL (4.50-10.00)
[2024-09-25 11:35] LABS: Glucose 87 mg/dL (74-99); Sodium 140 mmol/L (137-145)
[2024-09-25 11:36] LABS: ALT 20 U/L (4-49); AST 24 U/L (17-59); Acetaminophen <10.0 ug/mL; African American GFR (CKD) >90 (>60 ml/min/1.73 sqM); Albumin 4.5 g/dL (3.5-5.0); Alcohol <10 mg/dL; Alkaline Phosphatase 84 U/L (38-126); Anion Gap 10 mmol/L; Blood Urea Nitrogen 11 mg/dL (9-20); Calcium 10.3 mg/dL (8.4-10.2); Carbon Dioxide 27 mmol/L (22-30); Chloride 103 mmol/L (98-107); Non-African American GFR(CKD) >90 (>60 ml/min/1.73 sqM); Potassium 4.6 mmol/L (3.5-5.1); Salicylate <1.0 mg/dL; Total Bilirubin 0.4 mg/dL (0.2-1.3)
--- NOTE | 2024-09-25 13:13 | XR ---
EXAMINATION TYPE: XR chest 2V DATE OF EXAM: 09/25/2024 1:06 PM COMPARISON: 04/12/2023 CLINICAL INDICATION: Male, 39 years old with history of ronchi, shortness of breath TECHNIQUE: AP and lateral views FINDINGS: Right anterior chest wall injection port with catheter tip at the mid SVC level. Heart mildly enlarge d. Diffuse interstitial and vascular density is present. No sizable pleural effusion. The lateral vie w shows lucency projecting along the posterior aspect of the heart. IMPRESSION: 1. Correlate for possible CHF with pulmonary vascular congestion. 2. Known moderate to large hiatal hernia. Correlate for any associated symptoms. [facility], Workstation: [email or web address], 09/25/2024 1:10 PM
[2024-09-25 14:24] VITALS: BP 130/60; PULSE 78
== END 2024-09-25 14:24 | disposition home or self-care (01) ==
LOC: EC 10:01
DX: T51.2X1A Toxic effect of 2-Propanol, accidental (unintentional), initial encounter (principal)
CPT/HCPCS: 36415; 93005; 83930; 83880; 80053; 83605; 84484; 85025; 80143; 80179; 71046; 99284; G0480; 80320